=== PATIENT | female | born 1995 | race Caucasian/White ===

== ENCOUNTER 2016-07-01 22:23 | Emergency (ER) | payer OTHER ==
[2016-07-01] MEDS ORDERED: AZITHROMYCIN 250 MG TABLET PO STA (23:35)
[2016-07-01] MEDS ORDERED: DEXAMETHASONE 10 MG/ML VIAL PO STA (23:35)
[2016-07-01] MEDS ORDERED: AZITHROMYCIN 250 MG TABLET PO ONE (23:39)
[2016-07-01] MEDS ORDERED: DEXAMETHASONE 10 MG/ML VIAL ONE (23:39)
[2016-07-01] MEDS ORDERED: CHERRY SYRUP 10 ML UDC PO ONE (23:39)
== END 2016-07-01 23:50 | disposition home or self-care (01) ==
DX: L25.9 Unspecified contact dermatitis, unspecified cause (principal); H66.90 Otitis media, unspecified, unspecified ear
CPT/HCPCS: 99283; A9270

== ENCOUNTER 2018-01-07 07:39 | Emergency (ER) | payer OTHER ==
[2018-01-07 07:49] VITALS: BP 121/87
[2018-01-07] MEDS ORDERED: PROPARACAINE 0.5% OPHTH DROPS 15 ML EACHEYE STA (07:53)
--- NOTE | 2018-01-07 08:24 | ED Physician Documentation ---
History of Present Illness - Stated complaint Stated Complaint: EYE SWELLING - Chief complaint Chief Complaint: Heent - Additonal information Additional information: 22 f AD [place] to ED with R eye irritation X 1 days sand like sensation to inner lower lid no known FB no contacts no vision change no dc or matting Review of Systems Eyes: reports: Irritation : denies: Now EGA (denies) PD PAST MEDICAL HISTORY - Past Medical History Cardiovascular: None Respiratory: None Endocrine/Autoimmune: None GI: None : None Psych: None Musculoskeletal: Other Derm: None - Past Surgical History Past Surgical History: No - Present Medications Home Medications: Ambulatory Orders Medication Instructions Recorded Confirmed Olopatadine HCl [Patanol] 1 drops RIGHTEYE BID #1 bottle 01/07/18 - Allergies Allergies/Adverse Reactions: Allergies Allergy/AdvReac Type Severity Reaction Status Date / Time No Known Drug Allergies Allergy Verified 07/01/16 22:28 - Social History Does the pt smoke?: No Smoking Status: Never smoker Does the pt drink ETOH?: No Does the pt have substance abuse?: No - Immunizations Immunizations are current?: Yes - POLST Patient has POLST: No PD ED PE NORMAL - Vitals Vital signs reviewed: Yes - HEENT HEENT: PERRL, EOMI, Other (mild injection, no dc, not hazy, globe soft, pupil reactive, no sig lid swelling, mild erythema, no FB even with lid eversion, no uptake with flourescein) - Cardiac Cardiac: RRR - Respiratory Respiratory: No respiratory distress, Clear bilaterally Results - Vitals Vitals: Vital Signs - 24 hr 01/07/18 07:46 Temperature 36.6 C Heart Rate 85 Respiratory 16 Rate Blood Pressure 121/87 H O2 Saturation 100 Oxygen O2 Source Room air PD MEDICAL DECISION MAKING - Sepsis Event Vital Signs: Vital Signs - 24 hr 01/07/18 07:46 Temperature 36.6 C Heart Rate 85 Respiratory 16 Rate Blood Pressure 121/87 H O2 Saturation 100 Oxygen O2 Source Room air Departure - Departure Disposition: 01 Home, Self Care Clinical Impression: Allergic conjunctivitis Qualifiers: Laterality: right Qualified Code(s): H10.11 - Acute atopic conjunctivitis, right eye Condition: Good Instructions: ED Allergic Conjunctivitis Prescriptions: Olopatadine HCl [Patanol] 1 drops RIGHTEYE BID #1 bottle Comments: Use the drops twice daily until better Do not rub Cool compresses will help as well Return if worse Forms: Activity restrictions
== END 2018-01-07 08:37 | disposition home or self-care (01) ==
LOC: ED 07:39
DX: H10.11 Acute atopic conjunctivitis, right eye (principal)
CPT/HCPCS: 99283; J3490

== ENCOUNTER 2018-01-16 12:43 | Outpatient (CLI) | payer OTHER ==
--- NOTE | 2018-01-16 22:32 | MRI Report ---
Procedure Date: 01/16/2018 Accession Number: [id number] / [id number] Procedure: MRI - Knee LT W/O CPT Code: FULL RESULT: EXAM: LEFT KNEE MRI WITHOUT CONTRAST EXAM DATE: 01/16/2018 01:24 PM. CLINICAL HISTORY: PX in left knee. COMPARISON: Radiographs 07/08/2015 and MRI 04/14/2015. TECHNIQUE: Multiplanar, multisequence T1-weighted and fluid-sensitive sequences of the knee without contrast. Other: None. FINDINGS: Bones: Post surgical changes of an anterior cruciate ligament reconstruction. Mild prominence of the femoral tunnel measuring up to 1.1 cm in diameter. Small amount of fluid sensitive hyperintense signal surrounds the graft within the Femoral tunnel. No adjacent bone marrow edema. No fracture or bone lesion. Articular Cartilage: Unremarkable. Medial Meniscus: The medial meniscus is intact. Lateral Meniscus: The lateral meniscus is intact. Cruciate Ligaments: Mild thickening and slightly vertical orientation of the anterior cruciate ligament graft. Susceptibility artifact at the proximal aspect. Fibers appear intact. Posterior cruciate ligament intact. Collateral Ligaments: The medial collateral and lateral collateral ligamentous structures are intact. Tendons: The quadriceps, patellar, semimembranosus, and popliteus tendons are unremarkable. Musculature: No edema or fatty atrophy. Other: Minimal joint effusion. Minimal popliteal cyst with leak. No loose bodies. The medial and lateral retinacula are intact. Subcutaneous soft tissues are unremarkable. Postsurgical changes in Hoffa's fat pad. IMPRESSION: 1. Mild thickening and slightly vertical orientation of the anterior cruciate ligament graft. No gross fluid-filled tear. 2. Mildly prominent size of the femoral tunnel with fluid sensitive hyperintense signal surrounding the graft within the tunnel. This is nonspecific and may be postsurgical. No adjacent edema or gross cystic changes. 3. Minimal joint effusion. 4. Menisci, collateral ligaments, and cartilage intact. [facility] MUSCULOSKELETAL RADIOLOGY SECTION
== END 2018-01-16 12:44 | disposition home or self-care (01) ==
LOC: DI 12:43
PROVIDERS: ATTEND Family Medicine
DX: M25.562 Pain in left knee (principal); M25.462 Effusion, left knee

== ENCOUNTER 2018-07-27 18:10 | Emergency (ER) | payer OTHER ==
--- NOTE | 2018-07-27 19:29 | XRAY Report ---
Reason: Cough Procedure Date: 07/27/2018 Accession Number: [id number] / [id number] Procedure: XR - Chest 1 View X-Ray CPT Code: 11210 FULL RESULT: EXAM: CHEST RADIOGRAPHY EXAM DATE: 07/27/2018 07:19 PM. CLINICAL HISTORY: Chronic cough for 3 months. COMPARISON: None. TECHNIQUE: 1 view. FINDINGS: Lungs/Pleura: No focal opacities evident. No pleural effusion. No pneumothorax. Mediastinum: Within exam limitations, the cardiomediastinal contour is normal. Other: No bony abnormality noted. IMPRESSION: Normal single view chest. [facility]
--- NOTE | 2018-07-27 19:55 | ED Physician Documentation ---
PD HPI URI - Stated complaint Stated Complaint: SOA/DIZZY/COUGH - Chief complaint Chief Complaint: Resp - History obtained from History obtained from: Patient - History of Present Illness Timing - onset: How many months ago (3) Timing duration: Months (3) Timing details: Gradual onset Pain level max: 3 Pain level now: 3 Severity Comments: mild Associated symptoms: Productive cough Contributing factors: No: Sick contact, Travel Improves by: Nothing. No: Rest, Medication Worsened by: Activity Review of Systems Ten Systems: 10 systems reviewed and negative Constitutional: reports: Reviewed and negative Eyes: reports: Reviewed and negative Ears: reports: Reviewed and negative Nose: reports: Reviewed and negative Throat: reports: Reviewed and negative Cardiac: reports: Reviewed and negative Respiratory: reports: Reviewed and negative GI: reports: Reviewed and negative : reports: Reviewed and negative Skin: reports: Reviewed and negative Musculoskeletal: reports: Reviewed and negative Neurologic: reports: Reviewed and negative Psychiatric: reports: Reviewed and negative Endocrine: reports: Reviewed and negative Immunocompromised: reports: Reviewed and negative PD PAST MEDICAL HISTORY - Past Medical History Past Medical History: No Cardiovascular: None Respiratory: None Endocrine/Autoimmune: None GI: None : None Psych: None Musculoskeletal: Other Derm: None - Past Surgical History Past Surgical History: No - Present Medications Home Medications: Ambulatory Orders Medication Instructions Recorded Confirmed Pnv No.95/Ferrous Fum/Folic AC 07/27/18 [ [place]] - Allergies Allergies/Adverse Reactions: Allergies Allergy/AdvReac Type Severity Reaction Status Date / Time No Known Drug Allergies Allergy Verified 07/01/16 22:28 - Social History Does the pt smoke?: No Smoking Status: Never smoker Does the pt drink ETOH?: No Does the pt have substance abuse?: No - Immunizations Immunizations are current?: Yes - POLST Patient has POLST: No PD ED PE NORMAL - Vitals Vital signs reviewed: Yes - General General: Alert and oriented X 3, No acute distress - HEENT HEENT: PERRL - Neck Neck: Supple, no meningeal sign - Cardiac Cardiac: RRR, No murmur - Respiratory Respiratory: Clear bilaterally - Abdomen Abdomen: Normal bowel sounds, Soft, Non tender, Non distended - Derm Derm: Warm and dry - Extremities Extremities: No deformity - Neuro Neuro: Alert and oriented X 3 - Psych Psych: Normal mood, Normal affect Results - Vitals Vitals: Vital Signs - 24 hr 07/27/18 07/27/18 18:20 20:01 Temperature 37.1 C 37.0 C Heart Rate 97 79 Respiratory 16 16 Rate Blood Pressure 140/93 H 115/76 O2 Saturation 100 100 Oxygen O2 Source Room air - Rads (name of study) Chest XRAY Radiology: Final report received (WNL) PD MEDICAL DECISION MAKING - ED course Complexity details: reviewed results, re-evaluated patient, considered differential, d/w patient ED course: 22-year-old female with cough.Unremarkable vitals, exam, chest x-ray. Discharged with primary care follow-up. Departure - Departure Disposition: Home, Self Care Clinical Impression: Upper respiratory infection Qualifiers: URI type: unspecified URI Qualified Code(s): J06.9 - Acute upper respiratory infection, unspecified Instructions: ED URI Viral Follow-Up: CHRISTOPHER GRANADO MD [Primary Care Provider] - Comments: Continue taking medications that are safe for as needed for upper respiratory symptoms. Follow-up with your primary care provider or OB as scheduled. Return with worsening symptoms. Discharge Date/Time: 07/27/18 20:02
[2018-07-27 20:01] VITALS: BP 115/76
== END 2018-07-27 20:02 | disposition home or self-care (01) ==
LOC: ED 18:10
DX: J06.9 Acute upper respiratory infection, unspecified (principal)
CPT/HCPCS: 71045; 99282; 99283